=== PATIENT | male | born 1980 ===

== ENCOUNTER 2025-07-22 13:07 | Emergency (ER) | payer OTHER ==
[~2025-07-22] VITALS: Ht 170.2 cm; Wt 83.9 kg
[2025-07-22 13:10] VITALS: BP 122/102
[2025-07-22 13:27] LABS: BASOPHILS 0.9 % (0.2-1.2); EOSINOPHILS 1.1 % (0.8-7.0); LYMPHOCYTES 26.6 % (21.8-53.1); MCH 30.5 PG (25.7-32.2); MCHC 34.9 g/dL (32.3-36.5); MCV 87.3 fL (79.0-92.2); MONOCYTES 6.0 % (5.3-12.2); NEUTROPHILS 65.2 % (34.0-67.9); RBC 5.05 M/uL (4.63-6.08)
[2025-07-22 13:49] LABS: ALT (SGPT) 73 U/L (14-59); AST (SGOT) 42 U/L (15-37); GLOMERULAR FILTRATION RATE,EST 89 mL/min (>60); PROTEIN, TOTAL 7.9 g/dL (6.4-8.2); UREA NITROGEN 12 mg/dL (7-18)
--- NOTE | 2025-07-23 11:45 | EKG ---
[facility] [address] [facility] [place], [place] [address] Signed Normal sinus rhythm with sinus arrhythmia Normal ECG No previous ECGs available Confirmed by TERRY PRATT MD ([id number] on 07/23/2025 11:44:57 AM Electronically Signed By: TERRY PRATT 07/23/25 1145 PATIENT NAME: KAYLENECHITRA Marley Electrocardiogram DATE OF : 82 PHYSICIAN: TERRY PRATT REPORT #: [id number] REPORT IS CONFIDENTIAL AND NOT TO BE RELEASED WITHOUT AUTHORIZATION
== END 2025-07-22 13:40 | disposition left against medical advice (07) ==
LOC: ED 13:07
PROVIDERS: Emergency Medicine
DX: R07.89 Other chest pain (principal); R73.9 Hyperglycemia, unspecified; I10 Essential (primary) hypertension; Z53.29 Procedure and treatment not carried out because of patient's decision for other reasons; Z88.8 Allergy status to other drugs, medicaments and biological substances
CPT/HCPCS: 36415; 71045; 80053; 83735; 84484; 85025; 93005; 93010; 99285-25